=== PATIENT | female | born 1960 | race Caucasian/White ===

== ENCOUNTER 2025-01-14 09:05 | Outpatient (CLI) | payer MEDICARE, SELFPAY ==
--- NOTE | 2025-01-14 09:08 | XR_ITS ---
FINAL REPORT TECHNIQUE: Bone densitometry calculations of the lumbar spine and bilateral hips were obtained. CLINICAL HISTORY: SCREENING COMPARISON: None FINDINGS: Using L1-4, the bone mineral density of the spine is 0.981 g/cm2, corresponding to T-score of -0.6 and a Z score of 1.3. This is within the range of normal. Using the left hip, the bone mineral density of the femoral neck is 0.694 g/cm2, corresponding to a T-score of -1.4 and a Z-score of 0.2. This is within the range of osteopenia. Using the right hip, the bone mineral density of the femoral neck is 0.694 g/cm?, corresponding to a T-score of -1.4 and a Z-score of 0.2. This is within the range of osteopenia. NOTE: T-score: Standard deviation compared with peak bone mass of young adult mean. *Following the recommendations of the International Society of Bone densitometry, classification of hip BMD is based on the lower of two T-scores; total hip or femoral neck. IMPRESSION: 1. Bone mineral density of the lumbar spine within the range of normal. 2. Bone mineral density of the bilateral femoral necks within the range of osteopenia. Reviewed, Interpreted and Dictated by Salome Cleaning MD Transcribed by Odette Sherman Authenticated and [facility]
--- OUTSIDE RECORDS SUMMARY | 2025-01-14 09:22 | XMS_ITS | Clinical Summary ---
Author Organization [facility] yste Address [address] [place] [address] Care Team Providers Care Animal Husbandry Worker Name Role Phone Tamiko Ovalle ROMAN Primary Care Provider [phone] Social History Tobacco Use Types Packs/Day Years Used Date Smoking Tobacco: Never Assessed Comments Unknown Sex and Gender Information Value Date Recorded Sex Assigned at Not on file Legal Sex Female 11:35 AM EDT Gender Identity Not on file Sexual Orientation Not on file Plan of Treatment Upcoming Encounters Date Type Department Care Team (Late st Contact Info) Description 01/30/2025 9:10 AM EDT Office Visit [facility] [address] [address] Helder Aquino MD [address] [address] Health Maintenance Due Date Last Done Comments ANNUAL WELLNESS VISIT 1958 DXA SCAN 1958 HEPATITIS C SCREENING 1958 TDAP/TD VACCINES (1 - Tdap) 1977 MAMMOGRAM 1998 COLOGUARD 2003 COLON CANCER SCREENING 5 YEAR SIGMOIDOSCOPY 2003 COLONOSCOPY 2003 [address] CANCER SCREENING 2003 CT COLONOGRAPHY 2003 FECAL OCCULT BLOOD TEST 2003 FIT Testing (1 year) 2003 Pneumococcal Vaccine 50+ (1 of 1 - PCV) 01/27/2008 ZOSTER VACCINE (1 of 2) 01/27/2008 COVID-19 Vaccine ( season) 2025 INFLUENZA VACCINE 02/06/2025 Insurance MEDICARE A & B MEDICAID [facility] Care Teams Animal Husbandry Worker Relationship Specialty Start Date End Date Tamiko Ovalle APRN [address] [place] [address] PCP - General Nurse Practitioner 01/08/25
== END 2025-01-14 23:59 | disposition home or self-care (01) ==
LOC: RAD 09:06
PROVIDERS: PCP Nurse Practitioner Family; Visit Provider Nurse Practitioner Family
DX: M85.852 Other specified disorders of bone density and structure, left thigh (principal); M85.851 Other specified disorders of bone density and structure, right thigh; M81.0 Age-related osteoporosis without current pathological fracture; Z78.0 Asymptomatic menopausal state
CPT/HCPCS: 77080

== ENCOUNTER 2025-01-28 09:12 | Day surgery (SDC) | payer MEDICARE, OTHER, SELFPAY ==
[2025-01-23 14:53] VITALS: BMI 32.1
--- NOTE | 2025-01-25 13:30 | EXP.HP ---
History of Present Illness *Admission Date: 01/28/25 *History of present illness: Mrs. Yun is a 64-year-old female who is here for screening colonoscopy and does have a family history of colon cancer (brother of colon cancer in his late 60s). Her last colonoscopy was more than 5 years ago. The examination is deemed medically necessary for screening colonoscopy. The patient has been seen, interviewed and examined prior to the procedure by both myself and the anesthesia provider. [facility] Disclaimer: The information contained in this section may have been updated after the patient was seen, as this information can be updated by other users. 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), initial encounter Allergies Hypertension Surgical History History of hysterectomy History of sdseo-neyzk-spqxdot bypass History of appendectomy Family History Other Family history of diabetes mellitus type II Social History (Updated 01/28/25 @ 09:47 by Keena Garcia CRNA) Smoking Status: Current every day smoker alcohol intake: never substance use type: unknown current occupational status: disabled Travel in the last 8 weeks?: None caffeine: Yes Have you lived/traveled outside [place] in past 30 days?: No Contact w/someone who lives/traveled outside US past 30 days?: No Exposure to someone with infectious disease in past 14 days?: No Do you have a fever (greater than 100.4 F or 38 C)?: No Have you tested positive for COVID-19?: No Exposed to someone with COVID-19 in past 14 days?: No Do you have a sore throat?: No Do you have a cough?: No Do you have any weakness?: No Are you experiencing any nausea/vomitting?: No Do you have any diarrhea?: No Are you experiencing any unusual bleeding?: No Do you have any muscle aches/pain?: No Do you have any abdominal pain?: No Are you experiencing loss of taste or smell?: No Review of Systems Review of Systems Review of systems (narrative): Negative *Cardiovascular Comments: Negative *Gastrointestinal Comments: Negative *Genitourinary Comments: Negative *Musculoskeletal Comments: Negative *Neurologic Comments: Negative Meds Home Medications and Allergies Home Medications ?Medication ?Instructions ?Recorded ?Confirmed ?Type peg 3350-electrolytes 236 240 ml PO Q10M colonscopy #4,000 mL 01/16/25 01/28/25 Rx gram-22.74 gram-6.74 gram-5.86 gram solution (Golytely) acetaminophen 500 mg tablet 500 mg PO Q6H PRN Mild Pain (Scale 01/23/25 01/28/25 History Score 1-4) aspirin 81 mg tablet 81 mg PO DAILY 01/23/25 01/28/25 History cetirizine 10 mg tablet 10 mg PO DAILY 01/23/25 01/28/25 History losartan 50 mg tablet 50 mg PO DAILY 01/23/25 01/28/25 History multivitamin 1 tab PO DAILY 01/23/25 01/28/25 History rosuvastatin 10 mg tablet 10 mg PO DAILY 01/23/25 01/28/25 History vibegron 75 mg tablet (Gemtesa) 75 mg PO DAILY 01/23/25 01/28/25 History calcium 600 mg capsule 600 mg PO DAILY 01/28/25 01/28/25 History cholecalciferol (vitamin D3) 125 125 mcg PO DAILY 01/28/25 01/28/25 History mcg (5,000 unit) tablet (Vitamin D3) New Prescriptions to Start Prescriptions: Allergies Allergy/AdvReac Type Severity Reaction Status Date / Time ceftriaxone (From Rocepmnn) Allergy Hives Verified 01/23/25 14:40 polyethylene glycol (From Allergy Hives Verified 01/28/25 09:28 Golytely) polyethylene glycol 3350 Allergy Hives Verified 01/28/25 09:28 (From Golytely) potassium chloride (From Allergy Hives Verified 01/28/25 09:28 Golytely) sodium (From Golytely) Allergy Hives Verified 01/28/25 09:28 sodium bicarbonate (From Allergy Hives Verified 01/28/25 09:28 Golytely) sodium chloride (From Allergy Hives Verified 01/28/25 09:28 Golytely) sodium sulfate (From Allergy Hives Verified 01/28/25 09:28 Golytely) Exam Data for Last 24 hours I & O for Last 24 hours: Intake & Output 01/22/25 01/23/25 01/24/25 01/25/25 23:59 23:59 23:59 23:59 Weight 170 lb *Routine HEENT Exam Head: Present normocephalic Eye: Present EOMI and PERRL ENT: Present mucous membranes moist *Routine Neck Exam Neck: Present supple *Routine Respiratory Exam Respiratory: Present CTA bilaterally *Routine Cardiovascular Exam Cardiovascular: Present RRR *Routine Abdominal Exam Abdominal: Present soft and normoactive bowel sounds; Absent tenderness *Routine Rectal Exam Rectal:: deferred *Routine Genitalia Exam Genitalia:: deferred *Routine Extremities Exam Extremities: Absent cyanosis, clubbing or edema *Routine Skin Exam Skin: Present warm; Absent rash *Routine Neurological Exam Neurological: Present alert and oriented X3 Assessment and Plan *Assessment and plan (1) Screening for colon cancer: Status: Acute Category: Medical Code(s): Z12.11 - Encounter for screening for malignant neoplasm of colon (2) Family history of colon cancer: Status: Acute Category: Medical Code(s): Z80.0 - Family history of malignant neoplasm of digestive organs Plan A/P: 1. Screening for colon cancer with family history of colon cancer (brother) is the preprocedural diagnosis. The patient will be anesthetized/sedated using MAC sedation. The patient has been seen and examined. Cardiac and lung assessment prior to the examination is stable. Proceed with planned screening colonoscopy.
--- NOTE | 2025-01-28 07:18 | P.PCN_ITS ---
[facility] Procedure Note Date: 01/28/25 Time: 10:54 Procedure Note:: Colonoscopy Procedure Report: Colonoscopy with cold snare polypectomy Endoscopist: Schuyler Newsome II, MD Referring physician: MILLER Lopez Date of Procedure: January 28, 2025 Equipment: Olympus [id number] adult colonoscope Sedation: MAC sedation Indication: Mrs. Yun is a 64-year-old female who is here for screening colonoscopy and does have a family history of colon cancer (brother of colon cancer in his late 60s). Her last colonoscopy was more than 5 years ago. The patient reports no abdominal pain, weight loss, change in her bowel habits or rectal bleeding. The examination is deemed medically necessary for screening colonoscopy Procedure: Prior to the procedure, a history and physical exam was performed, and patient's medications and allergies were reviewed. The risks, benefits and alternatives of the sedation and procedure were discussed with the patient. All questions were answered and informed consent was obtained. The patient was brought to the procedure room. Patient identification and proposed procedure were verified by the physician and the nurse. The patient was placed in a left lateral decubitus position and the scope was passed under direct vision. Throughout the procedure, the patient's blood pressure, pulse, and oxygen saturations were monitored continuously. The colonoscopy was accomplished without difficulty. The patient tolerated the procedure well. Findings: On digital rectal examination there was normal rectal tone. There were no external hemorrhoids. The colonoscope was introduced through the anal canal to the rectum and advanced to the cecum. The ileocecal valve and appendiceal orifice were identified. The scope was advanced a short distance into the ileum which appeared grossly normal. The scope was then withdrawn into the colon. There were 9 colon polyps (cecum x 1 (8 mm), ascending x 5 (3, 3, 4, 4 and 5 mm), descending x 2 (4 and 7 mm) and sigmoid x 1 (4 mm)). These were all removed via cold snare polypectomy. The cecum, ascending and transverse colon and mucosa were grossly normal. There were scattered diverticuli throughout the descending and sigmoid colon (LEFT colon). The rectum itself was normal. Upon retroflexion within the rectum there were small grade 1 internal hemorrhoids. The preparation was excellent throughout with [place] Preparation Score of 9. The cecal time was 15 minutes. Impression: 1. Colonic polyps x 9 2. Left-sided diverticulosis 3. Small grade 1 internal hemorrhoids Plan: I will follow-up the polyp histology and recommend repeat screening/surveillance colonoscopy again in 3 years. I would encourage psyllium bulking fiber supplementation on a maintenance basis.
[2025-01-28] MEDS: LACTATED RINGERS 1000ML 1,000 ML 50 ML IV (09:25)
[2025-01-28 09:32] VITALS: BP 141/66; PULSE 77; RESP 18; TEMP 36.3; O2SAT 95
--- NOTE | 2025-01-28 09:46 | EXP.ANES.CKL ---
[facility] Disclaimer: The information contained in this section may have been updated after the patient was seen, as this information can be updated by other users. 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), initial encounter Allergies Hypertension Surgical History History of hysterectomy History of gakwp-lagcc-acnfehc bypass History of appendectomy Family History Other Family history of diabetes mellitus type II Social History Smoking Status: Current every day smoker alcohol intake: never substance use type: unknown current occupational status: disabled Travel in the last 8 weeks?: None caffeine: Yes [facility] Anesthesia Checklist Patient Identification Patient Identification: Arm Band and Verbal (Name & ) Structural Data Admitted From: Home Planned Operative Procedure/s: colonscopy Consent for Planned Operative Procedure(s) Verified: Yes Verified Documents: Surgical Consent and History and Physical NPO Status Verified Time NPO: 00:00 Additional verifications Anesthesia Reactions: No Previous Colonoscopy: Yes Airway Assessment Mallampati Score:: Class II Dentition: Edentulous Neurological Assessment Level of Consciousness: Awake, Alert and Appropriate Hx Seizures: No Numbness or tingling in extremities: No Anesthesia Plan Anesthesia Risk discussed: Yes Anesthesia Plan: Verified ASA Class: II Anesthesia Type: MAC
[2025-01-28 10:56] VITALS: BP 92/42; PULSE 59; RESP 14; TEMP 36.2; O2SAT 99
[2025-01-28 11:06] VITALS: BP 115/58; PULSE 57; RESP 16; O2SAT 100
[2025-01-28 11:16] VITALS: BP 138/71; PULSE 63; RESP 16; O2SAT 100
[2025-01-28 11:26] VITALS: BP 140/48; PULSE 64; RESP 16; TEMP 36.6; O2SAT 100
== END 2025-01-28 11:30 | disposition home or self-care (01) ==
PROVIDERS: PCP Nurse Practitioner Family; Visit Provider Internal Medicine Gastroenterology
PROC: 0DJD8ZZ Inspection of Lower Intestinal Tract, Via Natural or Artificial Opening Endoscopic (ICD-10-PCS; CPT 45378; principal; 2025-01-28 11:00)
DX: Z12.11 Encounter for screening for malignant neoplasm of colon (principal); D12.2 Benign neoplasm of ascending colon; D12.0 Benign neoplasm of cecum; D12.4 Benign neoplasm of descending colon; K63.5 Polyp of colon; K57.30 Diverticulosis of large intestine without perforation or abscess without bleeding; K64.0 First degree hemorrhoids; I10 Essential (primary) hypertension; Z79.82 Long term (current) use of aspirin; Z88.1 Allergy status to other antibiotic agents; Z80.0 Family history of malignant neoplasm of digestive organs
CPT/HCPCS: 45385; J2003; J2704; J7120